=== PATIENT | female | born 1975 | race Caucasian/White ===

== ENCOUNTER 2017-09-09 17:47 | Emergency (ER) | payer MEDICAID ==
[~2017-09-09] VITALS: Ht 167.6 cm; Wt 137.9 kg
[~2017-09-09 17:47] MED LIST: ASPI-1264 PO; NAPR220C15 PO; SOTA80TA69 PO
[2017-09-09 18:01] VITALS: BP 144/89
== END 2017-09-09 18:40 | disposition home or self-care (01) ==
LOC: ER 17:48
DX: M25.561 Pain in right knee (principal); Z79.82 Long term (current) use of aspirin; Z88.6 Allergy status to analgesic agent
CPT/HCPCS: 73564; 99284

== ENCOUNTER 2017-11-05 15:34 | Emergency (ER) | payer MEDICAID | END 2017-11-05 17:59 | disposition left against medical advice (07) | LOC: ER 15:34 | DX: M79.643 Pain in unspecified hand (principal); Z53.21 Procedure and treatment not carried out due to patient leaving prior to being seen by health care provider ==

== ENCOUNTER 2018-01-09 21:51 | Emergency (ER) | payer MEDICAID ==
[~2018-01-09] VITALS: Ht 167.6 cm; Wt 137.1 kg
[~2018-01-09 21:51] MED LIST changes: -SOTA80TA69 PO; +SOTA80TA73 PO
[2018-01-10 02:29] VITALS: BP 145/74
[2018-01-10] MEDS ORDERED: HYDR-3965 PO (02:53)
== END 2018-01-10 03:43 | disposition home or self-care (01) ==
LOC: ER 21:51
DX: S92.352A Displaced fracture of fifth metatarsal bone, left foot, initial encounter for closed fracture (principal); Z79.82 Long term (current) use of aspirin; Z79.899 Other long term (current) drug therapy; Z98.890 Other specified postprocedural states; W22.8XXA Striking against or struck by other objects, initial encounter; Y93.89 Activity, other specified; Y92.89 Other specified places as the place of occurrence of the external cause; Y99.8 Other external cause status
CPT/HCPCS: 29515; 73630; 99284

== ENCOUNTER 2018-01-18 10:25 | Outpatient (CLI) | payer MEDICAID ==
[~2018-01-18] VITALS: Ht 167.6 cm; Wt 298.0 kg
[~2018-01-18 10:25] MED LIST changes: +HYDR-3965 PO
[2018-01-18 10:34] VITALS: BP 112/69
== END 2018-01-18 11:09 | disposition home or self-care (01) ==
LOC: ORTHO 10:25
PROVIDERS: ATTEND Nurse Practitioner Family
DX: S92.355A Nondisplaced fracture of fifth metatarsal bone, left foot, initial encounter for closed fracture (principal); E66.01 Morbid (severe) obesity due to excess calories; I48.91 Unspecified atrial fibrillation; Z56.0 Unemployment, unspecified; Z88.8 Allergy status to other drugs, medicaments and biological substances; Z79.82 Long term (current) use of aspirin; X58.XXXA Exposure to other specified factors, initial encounter; Y93.89 Activity, other specified; Y92.89 Other specified places as the place of occurrence of the external cause; Y99.8 Other external cause status
CPT/HCPCS: 99213

== ENCOUNTER 2024-08-06 17:16 | Emergency (ER) | payer BC ==
[~2024-08-06] VITALS: Ht 167.6 cm; Wt 111.0 kg
[~2024-08-06 17:16] MED LIST changes: -HYDR-3965 PO
[2024-08-06 17:28] VITALS: BP 139/91; PULSE 94; RESP 16; TEMP 98.5; O2SAT 97
[2024-08-06] MEDS ORDERED: PRED20TA PO (18:09)
[2024-08-06] MEDS: predniSONE 20 mg tablet PO ONE (18:21)
== END 2024-08-06 18:32 | disposition home or self-care (01) ==
LOC: ER 17:17
DX: J04.0 Acute laryngitis (principal); I48.91 Unspecified atrial fibrillation; Z91.048 Other nonmedicinal substance allergy status; Z79.82 Long term (current) use of aspirin; Z79.899 Other long term (current) drug therapy; Z56.0 Unemployment, unspecified; Z98.890 Other specified postprocedural states; Z72.89 Other problems related to lifestyle
CPT/HCPCS: 99283; J7512